=== PATIENT | male | born 1980 | race Caucasian/White ===

== ENCOUNTER 2020-05-02 11:31 | Emergency (ER) | payer OTHER, SELFPAY ==
[2020-05-02 11:35] VITALS: BP 170/101; PULSE 120; RESP 18; TEMP 36.7; O2SAT 100
[2020-05-02 11:47] VITALS: BP 163/99; PULSE 108
[2020-05-02 11:50] VITALS: BP 167/104; PULSE 108
[2020-05-02 11:51] VITALS: BP 165/116; PULSE 106
[2020-05-02 11:53] LABS: Basophils Percent Auto 0.6 % (0.2-1.2); Eosinophils Absolute Auto 0.1 K/mm3 (0-0.3); Eosinophils Percent Auto 2.5 % (0-4.4); Hemoglobin 15.6 g/dL (14.0-18.0); Immature Granulocyte Absolute 0.03 K/mm3 (0.00-0.031); Immature Granulocyte Percent A 0.6 % (0-0.5); Lymphocytes Percent Auto 30.9 % (18.3-44.2); Mean Corpuscular HGB Conc 33.9 g/dl (32-36); Mean Corpuscular Hemoglobin 30.7 pg (26-34); Mean Corpuscular Volume 90.6 fl (80-100); Mean Platelet Volume 8.3 fl (7.4-10.4); Monocytes Absolute Auto 0.4 K/mm3 (0.1-0.6); Monocytes Percent Auto 8.3 % (2.6-8.5); Neutrophils Percent Auto 57.1 % (45.5-73.1); Platelet Count Result 331 k/mm3 (150-375); Red Blood Count 5.08 M/mm3 (4.6-6.20); Red Cell Distribution Width 12.5 % (11.5-14.5); White Blood Count 5.2 K/mm3 (4.5-10.0)
[2020-05-02 12:04] LABS: INR 0.9; Prothrombin Time 11.4 Seconds (11.1-14.7)
[2020-05-02 12:05] LABS: Alanine Aminotransferase 98 U/L (4-50); Albumin Level 4.7 g/dL (3.5-5.1); Alkaline Phosphatase 70 U/L (38-126); Anion Gap 15.9 mmol/L (7-16); Aspartate Amino Transferase 45 U/L (17-59); Bilirubin,Total 0.3 mg/dL (0.2-1.3); Blood Urea Nitrogen 11 mg/dL (9-20); Calcium 9.1 mg/dL (8.4-10.2); Carbon Dioxide 26 mmol/L (22-30); Chloride 100 mmol/L (98-107); Estimated CRCL calculation 111 ml/min; Estimated Glomerular Filt Rate > 60; Glucose 109 mg/dL (75-110); Partial Thromboplastin Time 28.3 SECONDS (22.3-36.8); Potassium 3.9 mmol/L (3.4-5.0); Sodium 138 mmol/L (137-145)
--- NOTE | 2020-05-02 12:11 | ED.GIBLEED ---
HPI - GI Bleed General Chief complaint: GI Bleed Stated complaint: bloody stool Time Seen by Provider: 05/02/20 11:49 Source: patient Mode of arrival: ambulatory Limitations: no limitations History of Present Illness HPI Narrative: This patient is a 40 year old male who presents for evaluation of rectal bleeding. He states this morning he was having a bowel movement when he saw blood in the toilet. He also saw bright red blood when he wipes. He states his still was solid. HE denies abdominal pain, nausea, vomiting, fever or lightheadedness. He does not take any blood thinners. complaint: blood on toilet paper Related Data Home Medications Medication Instructions Recorded Confirmed lisinopril-hydrochlorothiazide 1 tablet PO DAILY 05/02/20 Allergies Allergy/AdvReac Type Severity Reaction Status Date / Time No Known Allergies Allergy Verified 05/02/20 11:34 Review of Systems Review of Systems: All systems reviewed & are unremarkable except as noted in HPI and below PMFSH Past Medical History Medical History (Updated 05/02/20 @ 14:09 by Maryjo Pizarro MD) Hypertension Surgical History Surgical History (Updated 05/02/20 @ 12:14 by Maryjo Pizarro MD) History of hand surgery Social History Social History (Updated 05/02/20 @ 12:14 by Maryjo Pizarro MD) Smoking status: Never smoker Gender identity (if verbalized by the patient): Male Exam Narrative: Exam Narrative: GENERAL: Well-appearing, well-nourished, and in no acute distress. HEAD: Normocephalic, atraumatic EYES: PERRLA and EOMI, conjunctiva clear without discharge THROAT:Mucous membranes moist, Oropharynx normal without erythema, exudate, peritonsillar swelling or fluctuance NECK: Supple, without lymphadenopathy or mass RESPIRATORY: No respiratory distress, Airway patent, Respirations non-labored, Clear to auscultation without rales, rhonchi or wheeze HEART: Regular rate and rhythm. No murmur heard. Normal peripheral pulses. ABDOMEN: Soft, nontender, nondistended, normal active bowel sounds. No masses. No rebound or guarding, No organomegaly. EXTREMITIES: No edema, normal strength with full range of motion. SKIN: Warm, dry, normal color without rash NEURO: Alert and oriented x3. CN 2-12 grossly intact. No focal deficits. PSYCH: Normal mood and affect. GI: Rectal Exam: normal sphincter tone, No heme positive stool and No hemorrhoids Course Reevaluation(s) Reevaluation #1: PAtient denies having any additional episodees of bleeding. His labs are normal. He will follow up with PCP. Date: 05/02/20 Time: 14:07 Vital Signs Vital signs: Vital Signs Temperature 98.1 F 05/02/20 11:35 Pulse Rate 120 H 05/02/20 11:35 Respiratory Rate 18 05/02/20 11:35 Blood Pressure 170/101 H 05/02/20 11:35 Pulse Oximetry 100 05/02/20 11:35 Temperature 98.1 F 05/02/20 11:35 Pulse Rate 94 05/02/20 14:18 Respiratory Rate 18 05/02/20 14:18 Blood Pressure 146/95 H 05/02/20 14:18 Pulse Oximetry 100 05/02/20 14:18 MDM - GI Bleed Differential Diagnosis Differential diagnosis: Likely Lower gastrointestinal hemorrhage, hematochezia and anal fissure Lab Data Attestation: I reviewed the patient's lab results. Result diagrams: 05/02/20 11:44 05/02/20 11:44 Labs: Lab Results 05/02/20 05/02/20 05/02/20 Range/Units 11:44 11:44 11:44 WBC 5.2 (4.5-10.0) K/mm3 RBC 5.08 (4.6-6.20) M/mm3 Hgb 15.6 (14.0-18.0) g/dL Hct 46.0 (42.0-52.0) % MCV 90.6 (80-100) fl MCH 30.7 (26-34) pg MCHC 33.9 (32-36) g/dl RDW 12.5 (11.5-14.5) % Plt Count 331 (150-375) k/mm3 MPV 8.3 (7.4-10.4) fl Immature Gran % (Auto) 0.6 H (0-0.5) % Neut % (Auto) 57.1 (45.5-73.1) % Lymph % (Auto) 30.9 (18.3-44.2) % [place] % (Auto) 8.3 (2.6-8.5) % Eos % (Auto) 2.5 (0-4.4) % Baso % (Auto) 0.6 (0.2-1.2) % Lymph # (Auto) 1.60 (0.9-3.2) K/mm3
[2020-05-02 14:18] VITALS: BP 146/95; PULSE 94; RESP 18; O2SAT 100
== END 2020-05-02 14:18 | disposition home or self-care (01) ==
PROVIDERS: Emergency Provider General Practice; PCP Family Medicine Adolescent Medicine
DX: K62.5 Hemorrhage of anus and rectum (principal); I10 Essential (primary) hypertension
CPT/HCPCS: 36415; 80053; 85025; 85610; 85730; 86850; 86900; 86901; 99283

== ENCOUNTER 2022-01-21 20:12 | Emergency (ER) | payer SELFPAY ==
--- NOTE | ~2022-01-21 | XR_ITS ---
EXAMINATION: XR chest 2V DATE: 01/21/2022 20:42 INDICATION: Left arm pain TECHNIQUE: PA and lateral views of the chest are obtained. COMPARISON: 09/07/2016 FINDINGS: The lungs are free of acute opacities. There is no pleural effusion or pneumothorax. The ca rdiomediastinal silhouette is normal. The visualized bones and soft tissues are unremarkable. IMPRESSION: 1. No acute cardiopulmonary abnormality. Reviewed, dictated and finalized at location F.
[2022-01-21 20:17] VITALS: BP 173/115; PULSE 122; RESP 16; TEMP 36.7; O2SAT 100
--- NOTE | 2022-01-21 20:21 | ECG_ITS ---
Measurements Intervals [place] Rate: 117 P: 44 GA: 141 QRS: -6 QRSD: 97 T: 16 QT: 332 QTc: 464 Interpretive Statements SINUS TACHYCARDIA MODERATE VOLTAGE CRITERIA FOR LVH, CONSIDER NORMAL VARIANT [MEETS CRITERIA IN ONE OF: R(aVL), S(V1), R(V5), R(V5/V6)+S(V1)] ABNORMAL RHYTHM ECG NO PREVIOUS ECG AVAILABLE FOR COMPARISON Electronically Signed On 01-23-2022 13:19:03 CDT by Shireen Gould M.D.
[2022-01-21 20:44] LABS: Basophils Percent Auto 0.3 % (0.2-1.2); Eosinophils Absolute Auto 0.1 K/mm3 (0-0.3); Eosinophils Percent Auto 1.2 % (0-4.4); Hematocrit 48.3 % (42.0-52.0); Hemoglobin 16.2 g/dL (14.0-18.0); Immature Granulocyte Absolute 0.01 K/mm3 (0.00-0.031); Immature Granulocyte Percent A 0.1 % (0-0.5); Lymphocytes Absolute Auto 1.93 K/mm3 (0.9-3.2); Mean Corpuscular HGB Conc 33.5 g/dl (32-36); Mean Corpuscular Hemoglobin 30.5 pg (26-34); Mean Platelet Volume 8.2 fl (7.4-10.4); Monocytes Absolute Auto 0.8 K/mm3 (0.1-0.6); Monocytes Percent Auto 10.5 % (2.6-8.5); Neutrophils Absolute Auto 4.6 K/mm3 (1.3-6.7); Neutrophils Percent Auto 61.9 % (45.5-73.1); Platelet Count Result 339 k/mm3 (150-375); Red Blood Count 5.31 M/mm3 (4.6-6.20); Red Cell Distribution Width 12.4 % (11.5-14.5); White Blood Count 7.4 K/mm3 (4.5-10.0)
[2022-01-21 20:52] LABS: Alanine Aminotransferase 106 U/L (4-50); Albumin Level 4.8 g/dL (3.5-5.1); Alkaline Phosphatase 69 U/L (38-126); Anion Gap 12 mmol/L (8-16); Aspartate Amino Transferase 56 U/L (17-59); Bilirubin,Total 0.5 mg/dL (0.2-1.3); Blood Urea Nitrogen 15 mg/dL (9-20); Calcium 9.8 mg/dL (8.4-10.2); Carbon Dioxide 25 mmol/L (22-30); Chloride 96 mmol/L (98-107); Estimated CRCL calculation 97 ml/min; Estimated Glomerular Filt Rate > 60; Glucose 102 mg/dL (65-110); Lipase 78 U/L (23-300); Potassium 3.7 mmol/L (3.4-5.0); Sodium 133 mmol/L (137-145)
[2022-01-21 21:04] LABS: Troponin I < 0.012 ng/mL (0.000-0.034)
[2022-01-21 21:05] LABS: Prothrombin Time 12.5 Seconds (11.1-14.7)
[2022-01-21 21:06] LABS: Partial Thromboplastin Time 31.8 SECONDS (22.3-36.8)
--- NOTE | 2022-01-21 21:36 | ED.UPPEXIN ---
HPI - Extremity Injury (Upper) General Chief Complaint: Extremity Injury, Upper Stated Complaint: Left Arm Pain Time Seen by Provider: 01/21/22 21:28 Source: patient Mode of arrival: ambulatory Limitations: no limitations History of Present Illness HPI narrative: Pt presents with intermittent left shoulder discomfort for wo months. Pt denies specific injury but was doing a heavy lifting job prior to onset. Pt also noticed some numbness and tingling in tips of left 4th and 5th fingers. Pt denies weakness. complaint: injury to: left and shoulder Other Extremity Injury: Left: fingers and shoulder Other injuries: none Relieving factors: none Exacerbating factors: movement of extremity Associated symptoms: numbness Related Data Allergies Allergy/AdvReac Type Severity Reaction Status Date / Time No Known Allergies Allergy Verified 01/21/22 21:26 Review of Systems Review of Systems: All systems reviewed & are unremarkable except as noted in HPI and below PMFSH Past Medical History Medical History (Updated 01/22/22 @ 00:00 by Berhane Ward) Hypertension Surgical History Surgical History (System 10/24/21 @ 09:51 by Payam Nuñez) History of hand surgery Social History Social History (System 10/24/21 @ 09:51 by Payam Nuñez) Smoking status: Never smoker Gender identity (if verbalized by the patient): Male Exam Const: General: no acute distress and alert Orientation/consciousness: patient oriented x3 Neck: Neck: normal visual inspection and no meningeal signs Other: no tenderness to palpation Resp: Effort & Inspection: normal respiratory effort Auscultation: clear to auscultation bilaterally Cardio: Rate: regular rate Rhythm: regular rhythm GI: GI Palp: Yes Soft to palpation Auscultation: normal bowel sounds Skin: General skin exam: normal color Rashes: no rashes Neuro: General: patient oriented x3, moves all extremities and no focal motor deficits Extrem: Other: tender left trapezius with some spasm Psych: Appearance: grossly normal Mental Status: mental status grossly normal Affect: normal affect Thought content: Yes Normal thought content present Course Vital Signs Vital signs: Vital Signs Temperature 98.0 F 01/21/22 20:17 Pulse Rate 122 H 01/21/22 20:17 Respiratory Rate 16 01/21/22 20:17 Blood Pressure 173/115 H 01/21/22 20:17 Pulse Oximetry 100 01/21/22 20:17 Temperature 98.0 F 01/21/22 20:17 Pulse Rate 107 H 01/21/22 21:59 Respiratory Rate 16 01/21/22 21:59 Blood Pressure 139/84 01/21/22 21:59 Pulse Oximetry 98 01/21/22 21:59 MDM - Extremity Injury (Upper) Lab Data Result diagrams: 01/21/22 20:37 01/21/22 20:37 Labs: Lab Results 01/21/22 01/21/22 01/21/22 Range/Units 20:37 20:37 20:37 WBC 7.4 (4.5-10.0) K/mm3 RBC 5.31 (4.6-6.20) M/mm3 Hgb 16.2 (14.0-18.0) g/dL Hct 48.3 (42.0-52.0) % MCV 91.0 (80-100) fl MCH 30.5 (26-34) pg MCHC 33.5 (32-36) g/dl RDW 12.4 (11.5-14.5) % Plt Count 339 (150-375) k/mm3 MPV 8.2 (7.4-10.4) fl Immature Gran % (Auto) 0.1 (0-0.5) % Neut % (Auto) 61.9 (45.5-73.1) % Lymph % (Auto) 26.0 (18.3-44.2) % [place] % (Auto) 10.5 H (2.6-8.5) % Eos % (Auto) 1.2 (0-4.4) % Baso % (Auto) 0.3 (0.2-1.2) % Lymph # (Auto) 1.93 (0.9-3.2) K/mm3 [place] # (Auto) 0.8 H (0.1-0.6) K/mm3 Eos # (Auto) 0.1 (0-0.3) K/mm3 Baso # (Auto) 0.0 (0.0-0.1) K/mm3 Abs Immat Gran (auto) 0.01 (0.00-0.031) K/mm3 Absolute Neuts (auto) 4.6 (1.3-6.7) K/mm3 Absolute Nucleated RBC 0.0 (0.0-0.012) K/mm3 Nucleated RBC % 0.0 (0.0-0.2) % PT 12.5 (11.1-14.7) Seconds INR 1.0 APTT 31.8 (22.3-36.8) SECONDS Sodium 133 L (137-145) mmol/L Potassium 3.7 (3.4-5.0) mmol/L Chloride 96 L (98-107) mmol/L Carbon Dioxide 25 (22-30) mmol/L Anion Gap 12 (8-16) mmol/L BUN 15 (9
[2022-01-21 21:59] VITALS: BP 139/84; PULSE 107; RESP 16; O2SAT 98
== END 2022-01-21 21:59 | disposition home or self-care (01) ==
LOC: ANHED 21:50
PROVIDERS: Emergency Provider Emergency Medicine; PCP Family Medicine Adolescent Medicine
DX: M50.123 Cervical disc disorder at C6-C7 level with radiculopathy (principal); I10 Essential (primary) hypertension; R00.0 Tachycardia, unspecified; R94.31 Abnormal electrocardiogram [ECG] [EKG]
CPT/HCPCS: 36415; 71046; 80053; 83690; 84484; 85025; 85610; 85730; 93005; 99284

== ENCOUNTER 2024-07-15 13:03 | Outpatient (CLI) | payer OTHER, SELFPAY ==
[2024-07-15 13:46] LABS: Alanine Aminotransferase 180 U/L (6-50); Albumin Level 4.5 g/dL (3.5-5.1); Alkaline Phosphatase 60 U/L (38-126); Anion Gap 8 mmol/L (4-12); Aspartate Amino Transferase 81 U/L (17-59); Bilirubin,Total 0.5 mg/dL (0.2-1.3); Blood Urea Nitrogen 13 mg/dL (9-20); Calcium 9.2 mg/dL (8.4-10.2); Carbon Dioxide 28 mmol/L (22-30); Chloride 102 mmol/L (98-107); Cholesterol 261 mg/dL (0-200); Estimated Glomerular Filt Rate > 60; Glucose 111 mg/dL (65-110); HDL Direct 56 mg/dL; Potassium 4.1 mmol/L (3.4-5.0); Sodium 138 mmol/L (137-145); Triglycerides 105 mg/dL (<150)
[2024-07-15 14:00] LABS: LDL Cholesterol Direct 158 mg/dL; Transferrin 280 mg/dL (206-381)
[2024-07-15 14:52] LABS: Creatinine Urine 244.7 mg/dL
[2024-07-15 15:01] LABS: MALB Creatinine Ratio < 2.5 mg/g (0-30); Microalbumin Urine Random < 6.0 mg/L (0-16.7)
[2024-07-15 15:11] LABS: Iron 116 ug/dL (49-181)
[2024-07-15 15:21] LABS: Percent Iron Saturation 31 % (20-50)
[2024-07-15 17:37] LABS: Hepatitis B Surface Antigen Negative (Negative)
[2024-07-15 17:56] LABS: Hepatitis B Surface Anti Res Positive
[2024-07-18 04:43] LABS: Hepatitis B Core Ab Total NON-REACTIVE (NON-REACTIVE)
== END 2024-07-15 13:04 | disposition home or self-care (01) ==
PROVIDERS: PCP Family Medicine Adolescent Medicine; Visit Provider Family Medicine
DX: R74.01 Elevation of levels of liver transaminase levels (principal); I10 Essential (primary) hypertension; Z13.6 Encounter for screening for cardiovascular disorders
CPT/HCPCS: 36415; 80053; 80061; 82043; 82728; 83540; 83550; 84443; 84466; 86704; 86706; 87340

== ENCOUNTER 2024-08-03 13:44 | Outpatient (CLI) | payer OTHER, SELFPAY ==
--- NOTE | ~2024-08-03 | US_ITS ---
EXAM: ABDOMEN ULTRASOUND HISTORY: Elevated ALT level COMPARISON: None FINDINGS: LIVER: The liver is increased in echogenicity and unremarkable in size measuring 16 cm in longitudina l dimension. The main portal vein is patent demonstrating hepatopedal flow GALLBLADDER: No stones are identified within the gallbladder, which is otherwise unremarkable. No gallbladder wall thickening or pericholecystic fluid. BILE DUCTS: Common bile duct measures 5.5mm. PANCREAS: Limited evaluation of the pancreas secondary to overlying bowel gas VASCULATURE : The visualized portion of the abdominal aorta is nonaneurysmal. The IVC is patent. IMPRESSION: Fatty infiltration of the liver. Limited evaluation of pancreas secondary to overlying bowel gas. Otherwise, unremarkable sonographic evaluation of the right upper quadrant, as detailed above Reviewed, dictated and finalized at location A. EF MAN
== END 2024-08-03 13:45 | disposition home or self-care (01) ==
PROVIDERS: PCP Family Medicine Adolescent Medicine; Referring Provider Nurse Practitioner Family; Visit Provider Family Medicine
DX: K76.0 Fatty (change of) liver, not elsewhere classified (principal); R74.01 Elevation of levels of liver transaminase levels
CPT/HCPCS: 76705

== ENCOUNTER 2024-09-16 13:29 | Outpatient (CLI) | payer OTHER, SELFPAY ==
[2024-09-18 06:39] LABS: Alpha-1-Antitrypsin, QN 154 mg/dL (83-199); Ceruloplasmin 25 mg/dL (14-30)
== END 2024-09-16 13:30 | disposition home or self-care (01) ==
LOC: ANHLAB 13:29
PROVIDERS: PCP Family Medicine Adolescent Medicine; Visit Provider Nurse Practitioner Family
DX: R79.89 Other specified abnormal findings of blood chemistry (principal); F10.20 Alcohol dependence, uncomplicated
CPT/HCPCS: 36415; 81596; 82103; 82105; 82390; 82728; 83520; 84075; 84080; 86364

== ENCOUNTER 2024-12-17 14:24 | Emergency (ER) | payer OTHER, SELFPAY ==
[2024-12-17 14:35] VITALS: BP 152/90; PULSE 108; RESP 16; TEMP 36.7; O2SAT 99
--- NOTE | 2024-12-17 14:46 | ED.EAR ---
HPI - Ear Problem General Chief complaint: Ear Stated complaint: right ear pain Time Seen by Provider: 12/17/24 14:40 Source: patient Mode of arrival: ambulatory Limitations: no limitations History of Present Illness HPI Narrative: Miguel is a 44-year-old female patient presenting to the clinic today with complaints of right ear discomfort x1 week. He reports his symptoms have been off and on for 1 week. Denies any recent swimming. Has tenderness to palpation over the tragus. Denies any runny nose, cough, or congestion. Related Data Allergies Allergy/AdvReac Type Severity Reaction Status Date / Time No Known Allergies Allergy Verified 12/17/24 14:29 Review of Systems Review of Systems: Pertinent positives per HPI. Patient denies any fever, chills, rash, headache, visual changes, dizziness, cough, shortness of breath, chest pain, palpitations, nausea, vomiting, diarrhea, constipation, abdominal pain, or any urinary issues. PMFSH Past Medical History Medical History Hypertension Surgical History Surgical History History of hand surgery Family History Family History Father Lung cancer Diabetes mellitus Mother Lung cancer Social History Social History Years smoked: 20 Smoking status: Former smoker Smoking end date: 09/29/09 Alcohol intake: current Alcohol use details: Socially Substance use: never Substance use type: does not use Lack of Transportation: No Lack of Food: Never True Current Housing: I Have Housing Concerned About Future Housing: No Difficulty Paying Gas/Electric Bills: No Difficulty Paying for Meds: No Currently Unemployed: No Education: High School Diploma/GED Difficulty w/ Childcare or Family Care: No Living arrangements: with family Occupation/Education: unemployed Gender identity (if verbalized by the patient): Male Sexual Orientation (if Verbalized by the Patient): Straight or Heterosexual Spiritual care concerns: No Agree to blood products: Yes Comments At the time of my signature, I reviewed and agree with the nursing past medical, surgical, social, and family history. There is no relevant family history pertinent to the patient complaint. Exam Narrative: General: Well-developed, well nourished, in no apparent distress Head: Normocephalic, atraumatic Eyes: Pupils equally round and reactive to light bilaterally, EOM intact, sclera and conjunctive clear, no discharge, lids normal Ears: TMs intact and clear, ear canals clear, no drainage, grossly hearing normal. Nose: Nares patent, no discharge, no inflammation, no sinus tenderness. Mouth: Oral pharynx without lesions or masses, good dentition, MMM. Neck: Supple, trachea midline, no enlargement of anterior or posterior cervical nodes, no thyroid masses or goiter palpable. Cardio: Regular rate and rhythm, s1 and s2 normal, no murmur appreciated. Resp: Clear to auscultation bilaterally, no rhonchi, rales, wheezing or rubs Course Course Emergency Course: Portions of this record may have been created with voice recognition software. Level of Care: Express Care Visit Vital Signs Vital signs: Vital Signs Temperature 36.7 C 12/17/24 14:35 Pulse Rate 108 H 12/17/24 14:35 Respiratory Rate 16 12/17/24 14:35 Blood Pressure 152/90 H 12/17/24 14:35 Pulse Oximetry 99 12/17/24 14:35 Oxygen Delivery Room Air 12/17/24 14:35 Temperature 36.7 C 12/17/24 14:35 Pulse Rate 108 H 12/17/24 14:35 Respiratory Rate 16 12/17/24 14:35 Blood Pressure 152/90 H 12/17/24 14:35 Pulse Oximetry 99 12/17/24 14:35 Oxygen Delivery Room Air 12/17/24 14:35 Vital signs reviewed Procedures Ear Wax Removal Right Ear: Ear Wax Removal Date: 12/17/24 TM Examination: TM(s) intact, normal appearance Ear Canal Exam: other (red with mild swelling and abrasion to the outer ear canal caused by using the lighted curette. No bleeding.) Patient Tolerated Procedure: well Complications: no problems Technique: ear canal irrigated and ear canal curetted Additional Comments: Verbal consent obtained for right ear lavage. Risk and benefits explained to patient and they voiced understanding. A mixture of half warm water and half peroxide was used to irrigate ear canals. An lighted ear curette was then used to remove the cerumen from the outer external canal of right ear. Cerumen was successfully removed from right ear canal. Patient tolerated well. Medical Decision Making MDM Narrative Medical decision making narrative: At the time of visit patient is resting comfortably on the exam table. Patient appears to be nontoxic. Procedures: Ear irrigation was performed to the right ear canal for cerumen impaction removal. Some lighted curette was also used to assist with removal of some of the wax. Patient tolerated well. Plan: I suspect patient has right ear canal irritation after ear lavage/lighted curette procedure. Cerumen impaction was removed successfully. Will place patient on Cortisporin ear drops. Supportive measures were discussed with the patient and they voiced understanding discharge instructions and agrees to treatment plan. Return precautions reviewed Differential Diagnosis Differential Diagnosis: Otitis media, otitis externa, eustachian tube dysfunction, cerumen impaction, upper respiratory infection, serous otitis Vital Signs Vital Signs: Vital Signs Temperature 36.7 C 12/17/24 14:35 Pulse Rate 108 H 12/17/24 14:35 Respiratory Rate 16 12/17/24 14:35 Blood Pressure 152/90 H 12/17/24 14:35 Pulse Oximetry 99 12/17/24 14:35 Oxygen Delivery Room Air 12/17/24 14:35 Temperature 36.7 C 12/17/24 14:35 Pulse Rate 108 H 12/17/24 14:35 Respiratory Rate 16 12/17/24 14:35 Blood Pressure 152/90 H 12/17/24 14:35 Pulse Oximetry 99 12/17/24 14:35 Oxygen Delivery Room Air 12/17/24 14:35 Discharge Plan Discharge Clinical Impression: Cerumen impaction Qualifiers: Laterality: right Qualified Code(s): H61.21 - Impacted cerumen, right ear Irritation of external ear canal Qualifiers: Laterality: right Qualified Code(s): H61.891 - Other specified disorders of right external ear Patient Disposition: Home, Self-Care Condition: Stable Instructions: Antibiotic Form, Earache (ED) Additional Instructions: Ear irrigation was performed on the right ear canal Take any prescribed medications only as directed-Cortisporin ear drops Tylenol/motrin as needed for pain May use heating pad to alleviate pain Follow up with your PCP in 3-5 days if symptoms persist. Patient Language: Bahraini Prescriptions: New uonshuib-tmecnmnno-EY 3.5-10,000-1 mg/mL-unit/mL-% drops,suspension 4 drp EACH EAR Q8H 7 Days Qty: 10 0RF No Action lisinopril 40 mg tablet See Rx Instructions .ROUTE .COMPLEX Qty: 90 0RF Dose Instruction: Take 1 tablet by mouth once daily Rx Instructions: Take 1 tablet by mouth once daily hydrochlorothiazide 25 mg tablet See Rx Instructions .ROUTE .COMPLEX Qty: 90 0RF Dose Instruction: Take 1 tablet by mouth once daily Rx Instructions: Take 1 tablet by mouth once daily Follow-up/Referrals: Nolan Islas MD [Primary Care Provider] - Time of Disposition: 15:06 Quality NIHSS Nursing Documentation ED NIHSS nursing documentation: reviewed/agree
== END 2024-12-17 15:12 | disposition home or self-care (01) ==
PROVIDERS: Emergency Provider Nurse Practitioner Family; PCP Family Medicine Adolescent Medicine
DX: H61.21 Impacted cerumen, right ear (principal); H61.891 Other specified disorders of right external ear; Z87.891 Personal history of nicotine dependence; I10 Essential (primary) hypertension
CPT/HCPCS: 69210; 99213; G0463

== ENCOUNTER 2025-06-01 14:04 | Emergency (ER) | payer OTHER, SELFPAY ==
--- NOTE | ~2025-06-01 | XR_ITS ---
EXAMINATION: XR chest 2V 06/01/2025 15:23 INDICATION: Heart racing PROCEDURE: PA and lateral views of the chest COMPARISON: Comparison to multiple prior studies sequentially, with oldest reviewed study dated 05/08/2016. FINDINGS: The lungs are clear. The cardiomediastinal silhouette is within normal limits. There are no pleural effusions. There is no pneumothorax suspected. IMPRESSION: 1: NO ACUTE CARDIOPULMONARY DISEASE. Reviewed, dictated and finalized at location O.
--- NOTE | 2025-06-01 14:08 | ECG_ITS ---
Test Date: 2025-06-01 14:11:54 Measurements Intervals [place] Rate: 128 P: 52 MD: 132 QRS: -1 QRSD: 94 T: 44 QT: 311 QTc: 454 Interpretive Statements SINUS TACHYCARDIA MODERATE VOLTAGE CRITERIA FOR LVH, CONSIDER NORMAL VARIANT [MEETS CRITERIA IN ONE OF: R(aVL), S(V1), R(V5), R(V5/V6)+S(V1)] NONSPECIFIC T-WAVE ABNORMALITY ABNORMAL ECG No previous ECG available for comparison Electronically Signed On 06-01-2025 15:42:23 CDT by Arron Romo M.D.
[2025-06-01 14:09] VITALS: BP 183/102; PULSE 128; RESP 25; TEMP 36.6; O2SAT 98
[2025-06-01 14:19] VITALS: PULSE 121
[2025-06-01 14:24] LABS: Hematocrit 47.6 % (42.0-52.0); Hemoglobin 16.0 g/dL (14.0-18.0); Immature Granulocyte Percent A 0.2 % (0-0.5); Lymphocytes Absolute Auto 1.92 K/mm3 (0.9-3.2); Mean Corpuscular HGB Conc 33.6 g/dl (32-36); Mean Corpuscular Hemoglobin 30.8 pg (26-34); Mean Corpuscular Volume 91.5 fl (80-100); Nucleated Red Blood Cells Absolute Auto 0.000 K/mm3 (0.0-0.012); Nucleated Red Blood Cells Perc 0.0 % (0.0-0.2); Platelet Count Result 325 k/mm3 (150-375); Red Blood Count 5.20 M/mm3 (4.6-6.20); White Blood Count 5.7 K/mm3 (4.5-10.0)
[2025-06-01 14:35] LABS: Alanine Aminotransferase 222 U/L (6-50); Albumin Level 4.8 g/dL (3.5-5.1); Alkaline Phosphatase 65 U/L (38-126); Anion Gap 12 mmol/L (4-12); Aspartate Amino Transferase 120 U/L (17-59); Bilirubin,Total 0.5 mg/dL (0.2-1.3); Blood Urea Nitrogen 12 mg/dL (9-20); Calcium 9.9 mg/dL (8.4-10.2); Carbon Dioxide 24 mmol/L (22-30); Chloride 99 mmol/L (98-107); Estimated CRCL calculation 117 ml/min; Estimated Glomerular Filt Rate > 60; Glucose 130 mg/dL (65-110); Lipase 89 U/L (23-300); Potassium 3.9 mmol/L (3.4-5.0); Sodium 135 mmol/L (137-145); Total Protein 8.7 g/dL (6.3-8.2)
[2025-06-01 14:44] LABS: INR 1.0; Prothrombin Time 12.8 Seconds (11.1-14.7)
[2025-06-01 14:45] LABS: Partial Thromboplastin Time 28.6 Seconds (22.3-36.8)
[2025-06-01 14:47] LABS: Troponin I < 0.012 ng/mL (0.000-0.034)
--- NOTE | 2025-06-01 15:03 | ED.ARRPALP ---
HPI - Arrhythmia/Palpitations General Chief Complaint: Arrhythmia/Palpitations Stated Complaint: palpitations Time Seen by Provider: 06/01/25 14:23 Source: patient Mode of arrival: ambulatory Limitations: no limitations History of Present Illness HPI narrative: This is a 45 year old male that presents to the ER for palpitations. Reports this has been an ongoing issue for him for several years. Reports worsening recently. Reports some associated shortness of breath. Denies chest pain. Related Data Allergies Allergy/AdvReac Type Severity Reaction Status Date / Time No Known Allergies Allergy Verified 06/01/25 14:19 Review of Systems Review of Systems: All systems reviewed & are unremarkable except as noted in HPI and below PMFSH Past Medical History Medical History Hypertension Surgical History Surgical History History of hand surgery Family History Family History Father Lung cancer Diabetes mellitus Mother Lung cancer Social History Social History (Updated 04/04/25 @ 09:53 by Romina Morris CMA) Years smoked: 20 Smoking status: Former smoker Smoking end date: 09/29/09 Alcohol intake: current Alcohol use details: Socially Substance use: never Substance use type: does not use Do You Feel Safe in your Home?: Yes Lack of Transportation: No Lack of Food: Never True Current Housing: I Have Housing Concerned About Future Housing: No Difficulty Paying Gas/Electric Bills: No Difficulty Paying for Meds: No Currently Unemployed: No Education: High School Diploma/GED Difficulty w/ Childcare or Family Care: No Living arrangements: with family Occupation/Education: unemployed Gender identity (if verbalized by the patient): Male Sexual Orientation (if Verbalized by the Patient): Straight or Heterosexual Spiritual care concerns: No Agree to blood products: Yes Exam Narrative: GENERAL: Well-appearing, well-nourished, and in no acute distress. HEAD: Normocephalic, atraumatic. EYES: EOMI. ENT: Nares clear, no rhinorrhea or epistaxis. Mucous membranes moist. Oropharynx without tonsillar hypertrophy exudate or other lesions. CHEST: Clear to auscultation. No respiratory distress. No wheezes rales or rhonchi HEART: Regular rate and rhythm. No murmur heard. Normal peripheral pulses. EXTREMITIES: Normal range of motion. No edema. SKIN: Warm, dry, no rash. NEURO: No focal deficits. Alert and oriented x3. PSYCH: Normal mood and affect Course Course Emergency Course: Patient updated on his workup and agrees with plan of care Vital Signs Vital signs: Vital Signs Temperature 97.8 F 06/01/25 14:09 Pulse Rate 128 H 06/01/25 14:09 Respiratory Rate 25 H 06/01/25 14:09 Blood Pressure 183/102 H 06/01/25 14:09 Pulse Oximetry 98 06/01/25 14:09 Oxygen Delivery Room Air 06/01/25 14:09 Temperature 97.8 F 06/01/25 14:09 Pulse Rate 109 H 06/01/25 15:47 Respiratory Rate 18 06/01/25 15:47 Blood Pressure 120/75 06/01/25 15:47 Pulse Oximetry 98 06/01/25 14:09 Oxygen Delivery Room Air 06/01/25 14:09 MDM - Arrhythmia/Palpitations MDM Narrative Medical decision making narrative: Patient presents the emergency department for palpitations. Reports this has been an ongoing issue for him for some time, reports worsening recently. Patient tachycardic upon arrival, this is sinus tachycardia. This normalized with IV fluids. Cbc without concerning findings. Metabolic panel with transaminitis, which is chronic for patient. EKG without acute ST changes, his baseline troponin is negative. D-dimer is not elevated. Chest x-ray without acute cardiopulmonary abnormality. Holter monitor was placed in the ER for further evaluation. Instructed to have close follow-up with his PCP. He was given warnings to return to the ER Differential Diagnosis Differential diagnosis: Likely palpitations, anxiety, sinus tachycardia, artial fibrillation, artial flutter and supraventricular tachycardia Lab Data Attestation: I reviewed the patient's lab results. 06/01/25 14:18 06/01/25 14:18 Labs: Lab Results 06/01/25 Range/Units 14:18 WBC 5.7 (4.5-10.0) K/mm3 RBC 5.20 (4.6-6.20) M/mm3 Hgb 16.0 (14.0-18.0) g/dL Hct 47.6 (42.0-52.0) % MCV 91.5 (80-100) fl MCH 30.8 (26-34) pg MCHC 33.6 (32-36) g/dl RDW 12.2 (11.5-14.5) % Plt Count 325 (150-375) k/mm3 MPV 8.0 (7.4-10.4) fl Immature Gran % (Auto) 0.2 (0-0.5) % Neut % (Auto) 49.8 (45.5-73.1) % Lymph % (Auto) 33.6 (18.3-44.2) % [place] % (Auto) 12.3 H (2.6-8.5) % Eos % (Auto) 3.2 (0-4.4) % Baso % (Auto) 0.9 (0.2-1.2) % Lymph # (Auto) 1.92 (0.9-3.2) K/mm3 [place] # (Auto) 0.7 H (0.1-0.6) K/mm3 Eos # (Auto) 0.2 (0-0.3) K/mm3 Baso # (Auto) 0.1 (0.0-0.1) K/mm3 Abs Immat Gran (auto) 0.01 (0.00-0.031) K/mm3 Absolute Neuts (auto) 2.9 (1.3-6.7) K/mm3 Absolute Nucleated RBC 0.000 (0.0-0.012) K/mm3 Nucleated RBC % 0.0 (0.0-0.2) % PT 12.8 (11.1-14.7) Seconds INR 1.0 APTT 28.6 (22.3-36.8) Seconds D-Dimer < 0.27 (<0.48) ug/mL Sodium 135 L (137-145) mmol/L Potassium 3.9 (3.4-5.0) mmol/L Chloride 99 (98-107) mmol/L Carbon Dioxide 24 (22-30) mmol/L Anion Gap 12 (4-12) mmol/L BUN 12 (9-20) mg/dL Creatinine 0.87 (0.7-1.3) mg/dL Estim Creat Clear Calc 117 ml/min Estimated GFR > 60 (59 - ) Glucose 130 H (65-110) mg/dL Calcium 9.9 (8.4-10.2) mg/dL Total Bilirubin 0.5 (0.2-1.3) mg/dL AST 120 H (17-59) U/L ALT 222 H (6-50) U/L Alkaline Phosphatase 65 (38-126) U/L Troponin I < 0.012 (0.000-0.034) ng/mL Total Protein 8.7 H (6.3-8.2) g/dL Albumin 4.8 (3.5-5.1) g/dL Lipase 89 (23-300) U/L Imaging Data Radiologist's impression: ITS Impressions Chest X-Ray 06/01/25 15:25 IMPRESSION: 1: NO ACUTE CARDIOPULMONARY DISEASE. ECG Data EKG #1: ECG completion date: 06/01/25 EKG Interpretation: tachycardia, sinus rhythm, no ST changes and normal QT Critical Care Time Critical Care Time Critical Care Time: No Discharge Plan Discharge Clinical Impression: Palpitations Patient Disposition: Home Condition: Stable Instructions: Heart Palpitations (ED) Additional Instructions: Return to the emergency department if you experience fever, chest pain, shortness of breath, abdominal pain with nausea and vomiting, weakness, numbness, or any other symptoms that are concerning to you. Follow up with your primary care doctor Patient Language: Chinese Prescriptions: No Action lisinopril-hydrochlorothiazide 20-25 mg tablet 1 tablet PO DAILY Qty: 90 1RF amlodipine 5 mg tablet 5 mg PO DAILY Qty: 90 1RF Follow-up/Referrals: Teja De Paz DO [Primary Care Provider, Family Practice]
[2025-06-01] MEDS: SODIUM CHLORIDE 0.9% IV 1,000 ML 999 ML IV CONT (15:12)
--- OUTSIDE RECORDS SUMMARY | 2025-06-01 15:25 | XMS_ITS | Clinical Summary ---
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 Gender Identity Not on file Sexual Orientation Not on file Plan of Treatment Health Maintenance Due Date Last Done Comments Hepatitis C Virus (HCV) Screening 1979 TdaP Immunization 1979 Hepatitis B Immunization (1 of 3 - 19+ 3-dose series) 1998 Cologuard 01/22/2024 Colonoscopy 01/22/2024 Colorectal Cancer Screening 01/22/2024 Immunochemical Fecal Occult Blood 01/22/2024 SARS-COV-2 Immunization ( season) 2024 Influenza Immunization (#1) 2025 Respiratory Syncytial Virus (RSV) Immunization (Adult) (1 - 1-dose 75+ series) 2054 Human Papillomavirus (HPV) Immunization Aged Out No longer eligible b ased on patient's age to complete this topic Meningococcal Immunization (ACWY) Aged Out No longer eligible based on patient's age to complete this topic Pneumococcal Immunization Combined Aged Out No longer eligible based on patient's age to complete this topic Rotavirus Immunization Aged Out No lo nger eligible based on patient's age to complete this topic
--- OUTSIDE RECORDS SUMMARY | 2025-06-01 15:25 | XMS_ITS | Clinical Summary ---
Author Organization [facility] Address [address] [place] [id number] Care Team Providers Care Counter Maker Name Role Phone None, Provider MD Primary Care Provider Unavaila ble Allergies No known active allergies Medications psyllium (KONSYL) 100 % Pack Take 1 packet by mouth daily. May substitute with any fiber supplement 30 packet 3 Active docusate sodium (COLACE) 100 MG capsule Take 1 capsule (100 mg total) by mouth 2 (two) times daily. 30 capsule 3 Active Social History Tobacco Use Types Packs/Day Years Used Date Smoking Tobacco: Never Smokeless Tobacco: Never Tobacco Cessation:Counseling Given: Not Answered Alcohol Use Standard Drinks/Week Comments Yes 0 (1 standard drink = 0.6 oz pur e alcohol) daily 6pk beer/day Sex and Gender Information Value Date Recorded Sex Assigned at Not on file Legal Sex Male 6:39 PM CDT Gender Identity Not on file Sexual Orientation Not on file Last Filed Vital Signs Vital Sign Reading Time Taken Comments Blood Pressure 146/89 04/05/2023 2:10 AM CDT Pulse 107 04/05/2023 2:10 AM CDT Temperature 36.7 C (98.1 F) 04/04/2023 11:24 PM CDT Respiratory Rate 18 04/05/2023 2:10 AM CDT Oxygen Saturation 97% 04/05/2023 2:10 AM CDT Inhaled Oxygen Concentration - - Weight 104.3 kg (230 lb) 04/04/2023 11:24 PM CDT Height 175.3 cm (5' 9) 04/04/2023 11:24 PM CDT Body Mass Index 33.97 04/04/2023 11:24 PM CDT Plan of Treatment Health Maintenance Due Date Last Done Comments Colorectal Cancer Screening Colonoscopy (10 Years) 1979 Annual Physical 1982 Hepatitis C 1997 Hepatitis B Vaccines (1 of 3 - 19+ 3-dose series) 1998 COVID-19 Vaccine (2 - 2024-2 6 season) 2025 12/06/2020 DTaP, Tdap and Td Vaccines ( 2 - Td or Tdap) 07/26/2025 07/26/2015 Meningococcal B Vaccine Aged Out No l onger eligible based on patient's age to complete this topic Meningococcal Vaccine Aged Out No petey chris eligible based on patient's age to complete this topic Pneumococcal Vaccine: Pediat rics (0 to 5 Years) and At-Risk Patients (6 to 49 Years) Aged Out No longer eligi ble based on patient's age to complete this topic RSV Immunizations Under 20 Months Aged Out No longer eligible based on patient's age to complete this topic Care Teams Counter Maker Relationship Specialty Start Date End Date None, Provider, MD PCP - General UNKNOWN PHYSICIAN SPECIALTY 04/04/23
[2025-06-01 15:47] VITALS: BP 120/75; PULSE 109; RESP 18
--- OUTSIDE RECORDS SUMMARY | 2025-06-01 16:07 | XMS_ITS | Clinical Summary ---
Author Organization [facility] Address [address] [place] [id number] Care Team Providers Care Fire Medic Name Role Phone None, Provider MD Primary [...] age to complete this topic Care Teams Fire Medic Relationship Specialty Start Date End Date None, Provider, MD PCP - General UNKNOWN PHYSICIAN SPECIALTY 04/04/23
--- OUTSIDE RECORDS SUMMARY | 2025-06-01 16:07 | XMS_ITS | Clinical Summary ---
Author Organization 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
[2025-06-01 17:25] VITALS: BP 131/92; PULSE 103; RESP 20; O2SAT 98
--- NOTE | 2025-06-14 12:35 | WPDHOLTEREM ---
Holter/Event Monitor Holter/Event Monitor Date of procedure: 06/14/25 Holter/Event Procedure: 3-7 Day Holter Monitor Indications: Palpitations Conclusion: 1. 7 days holter monitor on 06/14/25. 2. Underlying rhythm is sinus rhythm. HR range 56-161 bpm; average HR 95 bpm. HR at 161 bpm was on 06/04/25 at 1:30 am. 3. There are rare premature supraventricular complexes. No supraventricular tachycardia. 4. There are rare premature ventricular complexes. No ventricular tachycardia. 5. No significant pauses greater than 3 seconds. 6. Patient reports 4 episodes of symptoms of irregular beats which demonstrates sinus tachycardia, HR range 106-138 bpm with 3 episodes with PAC's.
== END 2025-06-01 17:31 | disposition home or self-care (01) ==
PROVIDERS: Emergency Medicine; Emergency Provider Physician Assistant; PCP Family Medicine
DX: R00.2 Palpitations (principal); I10 Essential (primary) hypertension; Z87.891 Personal history of nicotine dependence; R94.31 Abnormal electrocardiogram [ECG] [EKG]; R00.0 Tachycardia, unspecified
CPT/HCPCS: 36415; 71046; 80053; 83690; 84484; 85025; 85380; 85610; 85730; 93005; 93242; 96360; 99284; J7030

== ENCOUNTER 2025-09-19 13:54 | Emergency (ER) | payer OTHER, SELFPAY ==
[2025-09-19 13:56] VITALS: BP 188/98; PULSE 117; RESP 18; TEMP 36.4; O2SAT 100
[2025-09-19 14:14] VITALS: BP 152/94; PULSE 96
--- OUTSIDE RECORDS SUMMARY | 2025-09-19 15:42 | XMS_ITS | Clinical Summary ---
Author Organization [facility] Address [address] [place] [address] Care Team Providers Care Health Administration Teacher Name Role Phone None, Provider MD Primary [...] (2 - 2024-2 6 season) 2025 12/06/2020 Influenza Adult (#1) 2025 07/26/2015 DTaP, Tdap and Td Vaccines ( 2 - Td or Tdap) 07/26/2025 07/26/2015 Hepatitis A Vaccines Aged Out No long er eligible based on patient's age to complete this topic Meningococcal B Vaccine Aged Out No l [...] age to complete this topic Care Teams Health Administration Teacher Relationship Specialty Start Date End Date None, Provider, PCP - General UNKNOWN PHYSICIAN SPECIALTY 04/04/23
--- OUTSIDE RECORDS SUMMARY | 2025-09-19 15:42 | XMS_ITS | Clinical Summary ---
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
--- NOTE | 2025-09-19 16:10 | ED.GENADULT ---
HPI - General Adult General Chief complaint: Back Pain/Injury Stated complaint: R. lower back pain radiates down leg Time Seen by Provider: 09/19/25 14:46 History of Present Illness HPI narrative: 45-year-old male put emergency department for evaluation for right lower back pain that radiates down his right leg. Patient reports he was standing on his left leg and attempting to put on his underwear by lifting his right leg when he had onset of back pain. Patient denies any associated numbness or weakness. Patient states the pain is worsened when lying on his back. Patient denies any loss of bowel or bladder control. Patient denies any falls. Related Data Allergies Allergy/AdvReac Type Severity Reaction Status Date / Time No Known Allergies Allergy Verified 08/08/25 10:49 Review of Systems Review of Systems: All systems reviewed & are unremarkable except as noted in HPI and below PMFSH Past Medical History Medical History Hypertension Surgical History Surgical History History of hand surgery Family History Family History Father Lung cancer Diabetes mellitus Mother Lung cancer Social History Social History Years smoked: 20 Smoking status: Former smoker Smoking end date: 09/29/09 Alcohol intake: current Alcohol use details: Socially Substance use: never Substance use type: does not use Lack of Transportation: No Lack of Food: Never True Current Housing: I Have Housing Concerned About Future Housing: No Difficulty Paying Gas/Electric Bills: No Difficulty Paying for Meds: No Currently Unemployed: No Education: High School Diploma/GED Difficulty w/ Childcare or Family Care: No Living arrangements: with family Occupation/Education: unemployed Gender identity (if verbalized by the patient): Male Sexual Orientation (if Verbalized by the Patient): Straight or Heterosexual Spiritual care concerns: No Agree to blood products: Yes Exam Narrative: APPEARANCE: Well appearing, no pain, no distress, well-nourished. HEAD: normocephalic, atraumatic. EYES: PERRLA/EOMI, conjunctivae clear. NOSE: Normal no drainage EARS:TMS clear with good light reflex. THROAT: Pharynx clear, no exudate. NECK: Supple. No adenopathy, no masses. RESPIRATORY: Airway patent, respirations nonlabored. Clear to auscultation bilaterally, no rales, rhonchi, wheezing. CARDIOVASCULAR: Regular rate and rhythm without murmurs rubs or gallops. ABDOMINAL: Soft, nontender, nondistended, normal bowel sounds MUSCULOSKELETAL: lower back tenderness to palpation NEURO: Alert. Cranial nerves II through XII intact. Good gait. Good coordination SKIN: Warm, dry. Normal Color Course Vital Signs Vital signs: Vital Signs Temperature 97.6 F 09/19/25 13:56 Pulse Rate 117 H 09/19/25 13:56 Respiratory Rate 18 09/19/25 13:56 Blood Pressure 188/98 H 09/19/25 13:56 Pulse Oximetry 100 09/19/25 13:56 Oxygen Delivery Room Air 09/19/25 13:56 Temperature 97.6 F 09/19/25 13:56 Pulse Rate 90 09/19/25 16:28 Respiratory Rate 17 09/19/25 16:28 Blood Pressure 150/88 H 09/19/25 16:28 Pulse Oximetry 99 09/19/25 16:28 Oxygen Delivery Room Air 09/19/25 13:56 MDM MDM Narrative Medical decision making narrative: 45-year-old male presenting to the emergency department for evaluation for lower back pain. Patient will be started on Medrol Dosepak. Patient will be provided Flexeril for muscle spasm. Patient was provided Auxvasse for additional pain control. Patient did request to return to work on Friday. Differential Diagnosis Differential Diagnosis: sciatica, lumbar strain, lumbar radiculopathy Discharge Plan Discharge Clinical Impression: Strain of lumbar region, Lumbar radiculopathy Patient Disposition: Home Condition: Stable Instructions: Antibiotic Form, Lumbar Radiculopathy (ED) Additional Instructions: Medrol Dosepak as directed until completed. Flexeril for muscle spasm. Auxvasse as needed for additional pain control. Have close follow-up with your primary care physician. If you have any worsening symptoms then please call or return to the emergency department. Patient Language: German Prescriptions: New cyclobenzaprine 10 mg tablet 10 mg PO BID PRN (Reason: muscle spasm) Qty: 14 0RF hydrocodone-acetaminophen 5-325 mg tablet 1 tablet PO Q12H PRN (Reason: pain) Qty: 14 0RF methylprednisolone [Medrol (Jerome)] 4 mg tablets,dose pack See Rx Instructions .ROUTE .COMPLEX Qty: 21 0RF Rx Instructions: for 6 days No Action amlodipine 10 mg tablet 10 mg PO DAILY Qty: 90 1RF lisinopril-hydrochlorothiazide 20-25 mg tablet 1 tablet PO DAILY Qty: 90 1RF Follow-up/Referrals: Teja De Paz DO [Primary Care Provider, Family Practice] Stand Alone Forms: Work/School Release IP
[2025-09-19] MEDS: KETOROLAC 30 MG/ML VIAL (*BKC) IM (16:25)
[2025-09-19] MEDS: HYDROcodone/acetaminophen (*CRX) 5-325 MG TABLET 1 TAB PO (16:25)
[2025-09-19] MEDS: CYCLOBENZAPRINE HCL 10 MG TABLET PO (16:25)
[2025-09-19 16:28] VITALS: BP 150/88; PULSE 90; RESP 17; O2SAT 99
--- OUTSIDE RECORDS SUMMARY | 2025-09-19 16:41 | XMS_ITS | Clinical Summary ---
Author Organization 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
--- OUTSIDE RECORDS SUMMARY | 2025-09-19 16:41 | XMS_ITS | Clinical Summary ---
Author Organization [facility] Address [address] [place] [address] Care Team Providers Care Rock Climbing Instructor Name Role Phone None, Provider MD Primary [...] age to complete this topic Care Teams Rock Climbing Instructor Relationship Specialty Start Date End Date None, Provider, PCP - General UNKNOWN PHYSICIAN SPECIALTY 04/04/23
== END 2025-09-19 16:30 | disposition home or self-care (01) ==
PROVIDERS: Emergency Provider Emergency Medicine; PCP Family Medicine
DX: S39.012A Strain of muscle, fascia and tendon of lower back, initial encounter (principal); M54.16 Radiculopathy, lumbar region; I10 Essential (primary) hypertension; Z87.891 Personal history of nicotine dependence; X50.0XXA Overexertion from strenuous movement or load, initial encounter
CPT/HCPCS: 96372; 99283; A9270; J1885